=== PATIENT | female | born 1950 | race Caucasian/White ===

== ENCOUNTER 2024-02-21 12:21 | Emergency (ER) | payer MEDICARE, SELFPAY ==
[2024-02-21 12:56] VITALS: BP 125/84
--- NOTE | 2024-02-21 13:08 | ED.MUSCINJ ---
HPI-Injury
<Kaylee Goldman NP - Last Filed: 02/21/24 13:16>
General
Chief Complaint: Musculo-Skeletal Complaint
Time Seen by Provider: 02/21/24 14:42
<Jesus Velásquez PA-C - Last Filed: 02/21/24 18:38>
General
Source: patient
Exam Limitations: none
History of Present Illness-Injury
Initial Injury comments:
73-year-old female presents complaining of left scapular pain that radiates down the arm. She tried massage anti-inflammatory steroid muscle relaxers without relief. She does note recent travel back and forth to [facility]. She denies
shortness of breath but notes a different breathing pattern. There is occasional pain in the front of her chest comfort. Pain does radiate down to the left small finger and causes numbness. Pain is made better by certain positions.
ED Provider Triage
<Kaylee Goldman ASSISTED LIVING HOME DIRECTOR - Last Filed: 02/21/24 13:16>
-
Patient seen by provider in Triage?: Seen in Triage
Attestation: A medical screening examination has been initiated by a qualified medical provider. Based on the assessment performed at this time, it has been determined that an emergent medical condition may exist and the patient has been informed
that further medical evaluation and possible additional diagnostic testing may be needed.
HPI: 73-year-old female with history of occipital neuralgia presents for severe pain in her left rhomboid area which started 4 nights ago as she got out of bed she felt a 'knot' and this pain has been getting worse and worse since. Pain is now
11/17. The next day she took 500 mg of Tylenol and went to her masseuse, had an hour and a half massage, and he 'could not make any headway with it.' He felt the pain is neurological and not muscle related. She left there went to urgent care, an
osteopath 'worked on' her back, gave her cyclobenzaprine and and a steroid taper. She is on second day of her steroid taper with no relief.
The only thing that relieves the pain is holding her left arm up in different positions.
had 1 gabapentin pill left from a previous surgery which she took with no relief.
Went to a chiropractor this morning and he could not do much she states because he was worried about the fact that she has a Lynx implant so she came here.
GENERAL: Alert , in no apparent distress
EYE: No visual abnormalities.
NECK: Trachea midline
ENT: No visible abnormalities.
LUNGS: No acute respiratory distress
NEUROLOGICAL: Alert and oriented
SKIN: Skin intact. No visible changes.
MUSCULOSKELETAL: Moving extremities normally. Holding left arm flexed at elbow and elevated for relief of pain.
PSYCH: Normal and appropriate interaction.
This is a medical evaluation conducted in person to initiate diagnostic evaluation and provide initial therapeutics. Please see further documentation by the treating clinician.
Phy Exam
<Jesus Velásquez PA-C - Last Filed: 02/21/24 18:38>
Physical Exam
Physical Exam:
General: Well-appearing female no acute respiratory distress
HEENT: Normocephalic atraumatic
Heart: Regular rate and rhythm
Lungs: Clear no wheeze
Musculoskeletal exam: There is tenderness noted to the left medial scapular region. She has decreased extension of her neck. She has good rotation from [id number]. Neurologic exam: Good strength to the upper extremities
Vascular: 2+ radial pulses bilaterally
Injury Course
<Kaylee Goldman NP - Last Filed: 02/21/24 13:16>
Orders/Labs/Results
Orders:
Orders
02/21/24 13:12
CR Thoracic Spine 3 Views Urgent
Reason For Exam: pain L upper back, radicular
02/21/24 13:13
Cervical Spine 4 or 5 Vw [CR Cervical Spine 4 Or 5 Vw] Urgent
Comment:
Reason For Exam: radicular pain left upper back
02/21/24 15:15
CT Chest PE Study Urgent
Comment:
Reason For Exam: left scapular pain
02/21/24 16:06
Complete Blood Count/With Diff Urgent
Comprehensive Metabolic Panel Urgent
02/21/24 17:49
Ketorolac [Toradol] 15 mg IV NOW STA
02/21/24 18:29
Gabapentin [Neurontin] 300 mg PO NOW STA
diazePAM [Valium Injection] 5 mg IV NOW STA
Abnormal Lab Results
02/21/24
16:06
Absolute Monos (auto) 0.8 H 10^3/uL
(0.1-0.6)
BUN 21 H mg/dl
(7-17)
02/21/24 16:06
02/21/24 16:06
<Jesus Velásquez PA-C - Last Filed: 02/21/24 18:38>
Orders/Labs/Results
Orders:
Orders
02/21/24 13:12
CR Thoracic Spine 3 Views Urgent
Reason For Exam: pain L upper back, radicular
02/21/24 13:13
Cervical Spine 4 or 5 Vw [CR Cervical Spine 4 Or 5 Vw] Urgent
Comment:
Reason For Exam: radicular pain left upper back
02/21/24 15:15
CT Chest PE Study Urgent
Comment:
Reason For Exam: left scapular pain
02/21/24 16:06
Complete Blood Count/With Diff Urgent
Comprehensive Metabolic Panel Urgent
02/21/24 17:49
Ketorolac [Toradol] 15 mg IV NOW STA
02/21/24 18:29
Gabapentin [Neurontin] 300 mg PO NOW STA
diazePAM [Valium Injection] 5 mg IV NOW STA
Abnormal Lab Results
02/21/24
16:06
Absolute Monos (auto) 0.8 H 10^3/uL
(0.1-0.6)
BUN 21 H mg/dl
(7-17)
02/21/24 16:06
02/21/24 16:06
<Jesus Velásquez PA-C - Last Filed: 02/21/24 18:38>
MDM/Problems Addressed
Differential Diagnosis Includes:
Back pain with occasional radiation down the left arm. Question radicular pain versus muscular strain versus PE given recent travel. Given the lack of improvement with typical remedies for musculoskeletal discomfort and recent travel. PE study
was ordered. I reviewed the x-rays of the cervical and thoracic spine ordered through triage which show degenerative changes but no other acute finding
<Jesus Velásquez PA-C - Last Filed: 02/21/24 18:38>
*Critical Care Note
Total Time (30-74mins, 75-104mins- exclusive of procedures): Not Applicable
<Jesus Velásquez PA-C - Last Filed: 02/21/24 18:38>
Update Note
Update Note:
PE study negative. I suspect radiculopathy as source of discomfort. Some relief with Toradol but added gabapentin and Valium while here. Will prescribe medicine that she can take at home and referred to Dr. Hermosillo for further evaluation.
ED Attending Note
<Kaylee Goldman ASSISTED LIVING HOME DIRECTOR - Last Filed: 02/21/24 13:16>
-
Portions of this chart may have been created with voice recognition software.� Occasional wrong word or��sound alike� substitutions may have occurred due to the inherent limitations of voice recognition software.
Discharge Plan
Departure
Patient Disposition: Home (Routine Discharge)
Date of Disposition: 02/21/24
Time of Disposition: 18:31
Patient with high blood pressure during this ER visit?: No
Discharge Problem:
Radiculopathy
Instructions: Muscle and Bone Pain (DC)
Prescriptions:
New
gabapentin 300 mg capsule
300 mg PO BID Qty: 30 0RF
Referrals:
Myles Hermosillo MD [Active] -
NONE,* [Family Provider] -
Activity Restrictions/Additional Instructions:
Continue your steroid taper until complete. He is gabapentin twice a day. Continue with warm compresses and Tylenol. Follow-up with back pain specialist for further evaluation
Interventions
Interventions:
*Risk Screen - Suicide Last Done: 02/21/24 12:56
*General Assessment Last Done: 02/21/24 12:56
*Neglect/Abuse Screening Last Done: 02/21/24 12:56
ED- Fall Risk Assessment Last Done: 02/21/24 16:00
*ED COVID-19 Vaccine History Last Done: 02/21/24 16:00
ED-Musculoskeletal Assessment Last Done: 02/21/24 16:00
Discharge Date and Time
Print Language: [email or web address]
[2024-02-21 16:22] LABS: % Basophils 0.5 % (0-2); % Eosinophils 0.9 % (0-6); % Immature Granulocytes 0.4 % (0-0.5); % Lymphocytes 33.7 % (20.5-51.1); % Monocytes 8.2 % (1.7-9.3); % Neutrophils 56.3 % (42.2-75.2); Absolute Basophils 0.1 10^3/uL (0-0.2); Absolute Eosinophils 0.1 10^3/uL (0-0.7); Absolute Lymphocytes 3.3 10^3/uL (1.2-3.4); Absolute Monocytes 0.8 10^3/uL (0.1-0.6); Absolute Neutrophils 5.6 10^3/uL (1.4-6.5); Hematocrit 39.6 % (37.0-47.0); Hemoglobin 13.2 g/dL (12.0-16.0); Mean Corp Hgb Conc. 33.3 g/dL (33.0-37.0); Mean Corpuscular Hgb 30.5 pg (27.0-31.0); Mean Corpuscular Volume 91.5 fL (81.0-99.0); Nucleated Red Blood Cells % 0 %; Platelet Count 278 10^3/uL (130-400); Red Blood Cell Count 4.33 10^6/uL (4.20-5.40); Red Cell Dist. Width 12.8 % (11.5-14.5); White Blood Cell Count 9.9 10^3/uL (4.8-10.8)
[2024-02-21 16:36] LABS: ALT (SGPT) 16 U/L (0-35); AST (SGOT) 19 U/L (14-36); Albumin 4.1 g/dl (3.5-5.0); Alkaline Phosphatase 53 U/L (38-126); Blood Urea Nitrogen 21 mg/dl (7-17); Calcium 9.1 mg/dl (8.4-10.2); Carbon Dioxide 28 mmol/L (22-30); Chloride 102 mmol/L (98-107); Glucose 85 mg/dl (70-99); Sodium 137 mmol/L (135-145); Total Bilirubin 0.6 mg/dl (0.2-1.3); Total Protein 6.5 g/dl (6.3-8.2); eGFR > 60.00
[2024-02-21] MEDS: TORADOL 15 MG IV (17:55)
[2024-02-21] MEDS: NEURONTIN 300 MG PO (18:35)
[2024-02-21] MEDS: VALIUM INJECTION 5 MG IV (18:36)
[2024-02-21 18:47] VITALS: BP 120/80
== END 2024-02-21 19:15 | disposition home or self-care (01) ==
LOC: EMR 12:21
PROVIDERS: Physician Assistant; EMERGENCY PHYSICIAN Emergency Medicine
DX: M54.10 Radiculopathy, site unspecified (principal)
CPT/HCPCS: 99285; 96374; 96375; 71275; 72050; 72072; 80053; 85025; Q9967

== ENCOUNTER → 2024-03-08 10:04 | Outpatient (REF) | payer MEDICARE, SELFPAY ==
[2024-03-08 11:59] LABS: HDL Cholesterol 71 mg/dl; LDL Cholesterol, Calculated 123 mg/dl; Total Cholesterol 209 mg/dl (50-199); Triglyceride 79 mg/dl (10-149); Very Low Density Lipoprotein 15 mg/dl (0-30)
== END ==
LOC: REG 10:04
PROVIDERS: ATTENDING PHYSICIAN Student in an Organized Health Care Education/Training Program
DX: I25.10 Atherosclerotic heart disease of native coronary artery without angina pectoris (principal); E78.00 Pure hypercholesterolemia, unspecified
CPT/HCPCS: 36415; 80061

== ENCOUNTER → 2024-03-09 14:13 | Outpatient (REF) | payer MEDICARE, SELFPAY | LOC: HWRCS 14:13 | PROVIDERS: ATTENDING PHYSICIAN Student in an Organized Health Care Education/Training Program | DX: I34.0 Nonrheumatic mitral (valve) insufficiency (principal) | CPT/HCPCS: 93306 ==

== ENCOUNTER → 2024-07-18 10:04 | Outpatient (REF) | payer MEDICARE, SELFPAY ==
[2024-07-18 10:56] LABS: % Basophils 0.7 % (0-2); % Eosinophils 5.5 % (0-6); % Immature Granulocytes 0.2 % (0-0.5); % Lymphocytes 37.2 % (20.5-51.1); % Monocytes 9.4 % (1.7-9.3); Absolute Eosinophils 0.3 10^3/uL (0-0.7); Absolute Monocytes 0.5 10^3/uL (0.1-0.6); Absolute Neutrophils 2.6 10^3/uL (1.4-6.5); Hematocrit 41.9 % (37.0-47.0); Hemoglobin 14.1 g/dL (12.0-16.0); Mean Corp Hgb Conc. 33.7 g/dL (33.0-37.0); Mean Corpuscular Hgb 30.5 pg (27.0-31.0); Mean Corpuscular Volume 90.5 fL (81.0-99.0); Mean Platelet Volume 9.1 fL (7.4-10.4); Nucleated Red Blood Cells % 0 %; Platelet Count 287 10^3/uL (130-400); Red Blood Cell Count 4.63 10^6/uL (4.20-5.40); Red Cell Dist. Width 12.1 % (11.5-14.5); White Blood Cell Count 5.4 10^3/uL (4.8-10.8)
[2024-07-18 11:26] LABS: ALT (SGPT) 18 U/L (0-35); AST (SGOT) 20 U/L (14-36); Albumin 4.3 g/dl (3.5-5.0); Alkaline Phosphatase 48 U/L (38-126); Blood Urea Nitrogen 17 mg/dl (7-17); Calcium 9.7 mg/dl (8.4-10.2); Carbon Dioxide 30 mmol/L (22-30); Chloride 108 mmol/L (98-107); Glucose 107 mg/dl (70-99); HDL Cholesterol 63 mg/dl; LDL Cholesterol, Calculated 125 mg/dl; Potassium 5.3 mmol/L (3.5-5.1); Sodium 142 mmol/L (135-145); Total Bilirubin 0.7 mg/dl (0.2-1.3); Total Cholesterol 212 mg/dl (50-199); Total Protein 6.7 g/dl (6.3-8.2); Triglyceride 123 mg/dl (10-149); Very Low Density Lipoprotein 24 mg/dl (0-30); eGFR > 60.00
[2024-07-18 11:30] LABS: C-Reactive Protein < 5.00 mg/L (0.0-10.00)
[2024-07-18 11:48] LABS: Vitamin D, 25-OH*** 22.8 ng/mL (30-80)
[2024-07-18 12:01] LABS: TSH Reflex To Free T4 1.29 uIU/ml (0.47-4.68)
[2024-07-18 12:08] LABS: Erythrocyte Sed Rate 3 mm/hour (0-20)
[2024-07-19 17:51] LABS: Thyroid Peroxidase Ab (TPO) 0.4 IU/mL (0.0-9.0)
[2024-07-19 18:11] LABS: Thyroglobulin 24.8 ng/mL (1.3-31.8); Thyroglobulin Antibodies <1.5 IU/mL (0.0-4.0)
== END ==
LOC: REG 10:04
PROVIDERS: ATTENDING PHYSICIAN Family Medicine
DX: I25.10 Atherosclerotic heart disease of native coronary artery without angina pectoris (principal); I34.0 Nonrheumatic mitral (valve) insufficiency; R03.0 Elevated blood-pressure reading, without diagnosis of hypertension; I35.1 Nonrheumatic aortic (valve) insufficiency; E55.9 Vitamin D deficiency, unspecified; F41.8 Other specified anxiety disorders; L65.9 Nonscarring hair loss, unspecified; Z83.49 Family history of other endocrine, nutritional and metabolic diseases; R25.2 Cramp and spasm; M25.50 Pain in unspecified joint; M50.30 Other cervical disc degeneration, unspecified cervical region
CPT/HCPCS: 36415; 80053; 80061; 82306; 84432; 84443; 85025; 85652; 86140; 86376; 86800

== ENCOUNTER → 2024-07-27 12:18 | Outpatient (REF) | payer MEDICARE, SELFPAY | LOC: PAVMRI 12:18 | PROVIDERS: ATTENDING PHYSICIAN Family Medicine | DX: R29.6 Repeated falls (principal); R26.89 Other abnormalities of gait and mobility; N39.498 Other specified urinary incontinence; R41.3 Other amnesia; R42 Dizziness and giddiness | CPT/HCPCS: 70544; 70553; A9575 ==

== ENCOUNTER → 2024-08-04 09:28 | Outpatient (REF) | payer MEDICARE, SELFPAY ==
[2024-08-04 11:41] LABS: Potassium 5.3 mmol/L (3.5-5.1)
== END ==
LOC: REG 09:28
PROVIDERS: ATTENDING PHYSICIAN Family Medicine
DX: E87.5 Hyperkalemia (principal)
CPT/HCPCS: 36415; 84132

== ENCOUNTER → 2024-09-12 11:07 | Outpatient (REF) | payer MEDICARE, SELFPAY ==
[2024-09-12 13:38] LABS: Potassium 4.5 mmol/L (3.5-5.1)
== END ==
LOC: REG 11:07
PROVIDERS: ATTENDING PHYSICIAN Family Medicine
DX: E87.5 Hyperkalemia (principal)
CPT/HCPCS: 36415; 84132

== ENCOUNTER → 2024-10-11 17:36 | Outpatient (REF) | payer MEDICARE, SELFPAY ==
[2024-10-11 18:39] LABS: Vitamin D, 25-OH*** 46.0 ng/mL (30-80)
== END ==
LOC: REG 17:36
PROVIDERS: ATTENDING PHYSICIAN Family Medicine
DX: E55.9 Vitamin D deficiency, unspecified (principal); N39.0 Urinary tract infection, site not specified
CPT/HCPCS: 36415; 82306; 87077; 87086; 87186

== ENCOUNTER → 2024-11-09 09:18 | Outpatient (REF) | payer MEDICARE, SELFPAY | LOC: RCS 09:18 | PROVIDERS: ATTENDING PHYSICIAN Family Medicine | DX: M79.604 Pain in right leg (principal); R06.02 Shortness of breath; R42 Dizziness and giddiness; R07.89 Other chest pain | CPT/HCPCS: 93225; 93226 ==

== ENCOUNTER → 2024-11-10 14:32 | Outpatient (REF) | payer MEDICARE, SELFPAY | LOC: RCS 14:32 | PROVIDERS: ATTENDING PHYSICIAN Family Medicine | DX: M79.604 Pain in right leg (principal); R06.02 Shortness of breath; R42 Dizziness and giddiness; R07.89 Other chest pain | CPT/HCPCS: 93017 ==

== ENCOUNTER → 2024-11-16 10:29 | Outpatient (REF) | payer MEDICARE, SELFPAY | LOC: RAD 10:29 | PROVIDERS: ATTENDING PHYSICIAN Family Medicine | DX: M79.604 Pain in right leg (principal) | CPT/HCPCS: 93922; 93925 ==

== ENCOUNTER → 2025-01-01 13:45 | Outpatient (REF) | payer MEDICARE, SELFPAY | LOC: HWRCS 13:45 | PROVIDERS: ATTENDING PHYSICIAN Internal Medicine Cardiovascular Disease; FAMILY PHYSICIAN Family Medicine | DX: R06.09 Other forms of dyspnea (principal) | CPT/HCPCS: 93306 ==